=== PATIENT | male | born 1990 | race Caucasian/White ===

== ENCOUNTER 2017-01-15 12:50 | Emergency (ER) | payer BC, OTHER ==
--- NOTE | 2017-01-15 13:32 | RAD ---
FINGERS LEFT HAND: Two views obtained. Left index finger is evaluated. HISTORY: Crush injury to left index finger. FINDINGS: No evidence of fracture or dislocation identified. There is soft tissue swelling at the PIP joint. There are tiny foci of soft tissue density seen at this PIP joint, both dorsally and laterally which could represent soft tissue foreign material. IMPRESSION: 1. No acute osseous abnormality. 2. Question soft tissue foreign bodies. POS: [facility]
[2017-01-15] MEDS ORDERED: Cephalexin 500 MG CAP ONE (13:54)
[2017-01-15] MEDS ORDERED: Adacel (T-DAP) 0.5 ML VIAL ONE (13:58)
== END 2017-01-15 14:05 | disposition home or self-care (01) ==
LOC: MADERS 12:50
DX: S60.022A Contusion of left index finger without damage to nail, initial encounter (principal); F17.210 Nicotine dependence, cigarettes, uncomplicated; W23.0XXA Caught, crushed, jammed, or pinched between moving objects, initial encounter; Y92.69 Other specified industrial and construction area as the place of occurrence of the external cause; Y99.0 Civilian activity done for income or pay
CPT/HCPCS: 90471; 90715